=== PATIENT | male | born 1955 | race Caucasian/White ===

== ENCOUNTER 2021-03-19 09:59 | Inpatient (IN) | payer MEDICARE ==
[~2021-03-19] VITALS: Ht 175.3 cm; Wt 75.3 kg
[2021-03-19] MEDS ORDERED: CHLORDIAZEPOXID25 MG PO (10:16)
[2021-03-19] MEDS ORDERED: VITAMIN B-12500 MC3 SL (10:17)
--- OUTSIDE RECORDS SUMMARY | 2021-03-19 11:42 | XMS ---
PreManage Notification: AMBIKA BOOTH Security Audit Control Clerk Events No recent Security Events currently on file CRITERIA MET - [facility] - 2 Visits in 30 Days CARE PROVIDERS Mo Monge DO [facility] Current PHONE: Unknown Alyson has no Care Guidelines for this patient. E.Adali VISIT COUNT (12 MO.) [address] [place] [address] TOTAL 2 NOTE: Visits indicate total known visits. ED/UCC VISIT TRACKING (12 MO.) 03/19/2021 10:00 [facility] [place] TYPE: Emergency COMPLAINT: - GLF - WEAKNESS 03/12/2021 07:54 [facility] [place] TYPE: Emergency DIAGNOSES: - Other disorders of plasma-protein metabolism, not elsewhere classified - Unspecified fall, initial encounter - Hypocalcemia - FALL INPATIENT VISIT TRACKING (12 MO.) No inpatient visits to display in this time frame [id number]
--- NOTE | 2021-03-19 14:30 | NUR ---
PT. HAS +3 BLE EDEMA HE STATES IS CHRONIC FOR THE PAST YEAR. ABRASIONS SCATTERED BLE. MULTIPLE SKIN TEARS TO LEFT ARM. DRESSED WITH ALLEVYNS AND CLEANED WITH WOUND SPRAY. PT. IS ALERT AND ORIENTED. LUNGS DIM. IN BASES. HE STATES HIS LAST ETOH DRINK WAS LAST MONDAY AND HIS SISTER BROUGHT HIM TO HIS PCP WHO PRESCRIBED "LITTLE GREEN PILLS" FOR WITHDRAWAL. IV SITE WNL AND FLUSHES WELL. DISCUSSED SAFETY AND PT. BROUGHT URINAL AND CLEAR FLUIDS. PT. LEFT RESTING WITH BED ALARM ON AND CALL LIGHT IN REACH.
--- NOTE | 2021-03-19 14:43 | NUR ---
REPORT RECEIVED FROM EDUCATION MANAGERS AND PT. ARRIVED VIA STRETCHER. ASSISTED WITH TRANSFERRING TO BED. VITALS TAKEN. MARGIN TRIMMER IN THE ROOM.
--- NOTE | 2021-03-19 16:47 | NUR ---
MED REC COMPLETE
--- NOTE | 2021-03-19 19:31 | NUR ---
PATIENT RESTING QUIETLY IN SEMI-FOWLERS POSITION IN BED. PATIENT DENIES ANY CARE NEEDS AT THIS TIME AND IS SLEEPY. SHIFT REPORT RECEIVED FROM KETTY ANDREWS.
--- NOTE | 2021-03-19 20:44 | NUR ---
TURNED PATIENT'S BED BACK FROM WINDOW SO HE CAN WATCH TV. PM MEDS GIVEN. PATIENT'S ATTENDS ARE DRY AT THIS TIME AND PATIENT ADVANCED TO LOW SODIUM DIET. CALLED [employer] FOR A SANDWICH BOX AND PATIENT HAS EATEN 2 JELLO'S. PATIENT HAS NO OTHER REQUESTS AT THIS TIME AND HAS SOME MINOR TREMORS IN HIS HANDS. CALL LIGHT IS IN REACH.
--- NOTE | 2021-03-19 21:54 | NUR ---
ASSITED PT TO HOB, CHANGED BRIEF, PERICARE DONE. SET PT UP FOR LATE NIGHT SNACK. CALL LIGHT WITHIN REACH, NO FURTHER ASSISTANCE NEEDED AT THIS TIME.
--- NOTE | 2021-03-19 22:00 | NUR ---
THIS RN HELPED PUT YOON ON HIS SANDWICH AND SET THE HEAD OF HIS BED UP TO EAT. PATIENT ALSO GIVEN A GLAS OF MILK HE REQUESTED. CALL LIGHT IS IN REACH.
--- NOTE | 2021-03-19 23:11 | NUR ---
ANSWERED PT CALL LIGHT, LARGE INCONT. CHANGED BRIEF. CALL LIGHT WITHIN REACH BED ALARM ON. NO FURTHER ASSISTANCE NEEDED AT THIS TIME.
--- NOTE | 2021-03-20 00:21 | NUR ---
PATIENT RESTING QUIETLY ON HIS RIGHT SIDE, RESPIRATIONS ARE REGULAR AND EVEN, EYES ARE CLOSED, AND CALL LIGHT IS IN REACH. HR=83 ON TELE.
--- NOTE | 2021-03-20 02:11 | NUR ---
PATIENT UP TO THE COMMODE AND BACK TO BED 2PA AND FWW. PATIENT HAD A LARGE FORMED BM. PATIENT BACK IN BED WITH SCD'S ON AND NEW WARM BLANKETS IN PLACE. PATIENT COMFORTABLE IN HIS CURRENT POSITION. LIGHTS TURNED DOWN AND CALL LIGHT IS IN REACH. HR=89 ON TELE#10.
--- NOTE | 2021-03-20 02:56 | NUR ---
PT CALLED SAYING HE NEEDS TO URINATE. ASSISTED HIM TO SIT AT EDGE OF BED, HE SAID HE FELT DIZZY. TRIED USING THE URINAL AND WAS UNABLE TO GO. PT IS NOW BACK IN BED AND HAS WARM BLANKETS IN PLACE. BED ALARM IS ON, SCDS ON AND CALL LIGHT IS CLOSE.
--- NOTE | 2021-03-20 03:30 | NUR ---
PATIENT RESTING QUIETLY ON HIS LEFT SIDE, RESPIRATIONS ARE REGULAR AND EVEN, EYES ARE CLOSED, AND CALL LIGHT IS IN REACH.
--- NOTE | 2021-03-20 05:39 | NUR ---
THIS RN WENT IN TO BLADDER SCAN PATIENT ONLY TO FIND THAT HE HAD A HUGE INCONTINENCE OF URINE IN THE BED. PATIENT CLEANED UP BY NAVJOT NGUYEN AND THIS RN. CHUX CHANGED AND NEW ATTENDS IN PLACE. PATIENT PULLED UP IN THE BED AND REPOSITIONED, BARRIER CREAM APPLIED TO PATIENT'S BUTTOCKS. [facility]. PATIENT'S CALL LIGHT IS IN REACH AND HE HAS NO OTHER NEEDS AT THIS TIME.
--- NOTE | 2021-03-20 07:10 | NUR ---
Report received from Edison HDEZ. Pt resting in bed with no needs at this time, allowed to rest undisturbed. Call light in reach. Will continue plan of care
--- NOTE | 2021-03-20 07:26 | NUR ---
SHIFT CHANGE REPORT GIVEN TO KETTY PEREZ. PATIENT RESTING QUIETLY ON HIS RIGHT SIDE, RESPIRATIONS ARE REGULAR AND EVEN, AND CALL LIGHT IS IN REACH.
--- NOTE | 2021-03-20 08:50 | NUR ---
Scheduled medications administered, assessment complete. Pt resting in bed when this RN enters and awakens to voice. He states feeling like he has a "terrible hangover" and requests to sit up, this RN and INSULATION AND FLOORING ASSEMBLER assisted pt to chair with FWW, tolerates well, legs elevated. Linens changed and personal hygiene provided. Lung sounds clear, pt has frequent cough with sputum noted. He states this is a new symptom. Breakfast delivered, pt has no further needs at this time. Denies need to void. Call light in reach.
--- NOTE | 2021-03-20 09:54 | NUR ---
PATIENT UP IN CHAIR. PATIENT COMPLAINED OF SOME DISCOMFORT UNDER RIGHT HIP, PILLOW PLACED UNDER RIGHT HIP AND PATIENT IS MORE COMFORTABLE NOW. VITALS AND I&O'S CHARTED. CALL LIGHT IN REACH. NO FURTHER NEEDS AT THIS TIME.
--- NOTE | 2021-03-20 10:10 | NUR ---
Consent to blood administration signed
--- NOTE | 2021-03-20 11:01 | NUR ---
First unit PRBC's infusing. Pt educated on risks, benefits, possible side effects, verbalizes understanding and signs consent form. VSS, pt A+O, on room, air. Pt states feeling "better" at this time after working with physical therapy and eating breakfast. This RN remains at bedside.
--- NOTE | 2021-03-20 11:15 | NUR ---
Vitals taken, stable at this time. Pt resting in chair with eyes closed, respirations even and unlabored. He denies sx of transfusion reaction. Blood adminstration rate increased, this RN remains at bedside total of 35 minutes. Call light in reach, pt has no further needs. Will continue to monitor.
--- NOTE | 2021-03-20 12:58 | NUR ---
PATIENT IN CHAIR FOR LUNCH. PATIENT THEN TO BED, 1PA FWW. INCONT. OF URINE. MELANIE CARE DONE. NEW ATTENDS IN PLACE. WARM BLANKETS GIVEN. VITALS AND I&O'S CHARTED. CALL LIGHT IN REACH. NO FURTHER NEEDS AT THIS TIME.
--- NOTE | 2021-03-20 14:00 | NUR ---
1st unit PRBC complete, pt VSS, a+o, has no needs or signs of adverse reaction.
--- NOTE | 2021-03-20 14:37 | NUR ---
2nd unit PRBCs infusing WNL. VSS, pt resting in bed with eyes closed, breathing even and unlabored. Verified with 2nd RN.
--- NOTE | 2021-03-20 16:00 | NUR ---
PRBC transfusion complete, VSS, pt alert and oriented. assisted to use the urinal to void, no further needs at this time.
--- NOTE | 2021-03-20 16:30 | NUR ---
Assisted patient with urinal use, positioned with pillows in bed. No further needs.
--- NOTE | 2021-03-20 17:00 | NUR ---
Pt calls and states incontinent, brief changed and large amount of urine noted. Pt repositioned in bed and has no further needs, call light in reach.
--- NOTE | 2021-03-20 18:29 | NUR ---
PATIENT SITTING UP IN BED. VITALS AND I&O'S CHARTED. WARM BLANKET GIVEN. CALL LIGHT IN REACH. NO FURTHER NEEDS AT THIS TIME.
--- NOTE | 2021-03-20 19:42 | NUR ---
ASSISTED PT WITH BED LINEN CHANGE, NEW BRIEF, PERICARE DONE, SKIN PROTECTANT APPLIED, VS DONE. RN NOTIFIED OF PAIN FROM COUGHING.
--- NOTE | 2021-03-20 20:06 | NUR ---
ASSSITED RN TO CHANGE PT, LARGE INCONT, CHANGED BRIEF, PERICARE, BOOSTED PT TO HOB, PT FLOATING ON PILLOWS, SUPINE
--- NOTE | 2021-03-20 20:11 | NUR ---
PATIENT CALLED FOR URINARY INCONTINENCE. PATIENT'S ATTENDS CHANGED BY THIS RN AND NAVJOT NGUYEN. PATIENT FLOATED ON PILLOWS OFF HIS BACK AND BUTTOCKS. PATIENT REQUESTING COUGH MEDICATION. INFORMED AND COUGH MEDS ORDERED. PATIENT'S CALL LIGHT IS IN REACH. AWAITING COUGH MED ORDER TO CLEAR.
--- NOTE | 2021-03-20 20:36 | NUR ---
PATIENT GIVEN COUGH MEDICATION AND HIS OTHER EVENING MEDS. PATIENT ATTENDS WET AND PATIENT CLEANED UP BY THIS RN AND NAVJOT NGUYEN. NEW WARM BLANKETS GIVEN. PATIENT HAS NO OTHER NEEDS AT THIS TIME. CALL LIGHT IS IN REACH.
--- NOTE | 2021-03-20 22:36 | NUR ---
PATIENT RESTING QUIETLY IN BED WITH HEAD OF BED SLIGHTLY ELEVATED. HR=81 ON TELE#10. RESPIRATIONS ARE REGULAR AND EVEN AND HIS EYES ARE CLOSED. CALL LIGHT IS IN REACH.
--- NOTE | 2021-03-20 23:51 | NUR ---
PATIENT CALLED FOR WET ATTENDS. MELANIE-PAD CHANGED AND DRY ATTENDS IN PLACE. PATIENT HAD NO OTHER CARE NEEDS AT THIS TIME. CALL LIGHT IS IN REACH. PATIENT UNABLE TO VOID ANY FURTHER USING URINAL.
--- NOTE | 2021-03-21 00:20 | NUR ---
PATIENT CALLED AND IS NOT COMFORTABLE IN BED. PATIENT REPOSITIONED AND PULLED UP IN THE BED AND TURNED TO HIS LEFT SIDE. CALL LIGHT IN REACH AND NO FURTHER NEEDS AT THIS TIME.
--- NOTE | 2021-03-21 00:35 | NUR ---
PATIENT CALLED AND IS NOT COMFORTABLE. PATIENT REPOSITONED BY NAVJOT NGUYEN. PATIENT HAD A SMALL AMOUNT OF URINE ON PERIPAD AGAIN AND WAS CHANGED. PATIENT HAS NO OTHER NEEDS AT THIS TIME. CALL LIGHT IN REACH AND TELE BOX HAS BEEN DC'D.
--- NOTE | 2021-03-21 00:45 | NUR ---
PATIENT CALLED ASKING FOR A SLEEPING PILL. TALKED WITH PATIENT ABOUT THE LIBRIUM HE WAS ALREADY GIVEN AND THAT HE DOES NOT HAVE ANOTHER DOSE DUE UNTIL MORNING. OFFERED PATIENT SOME WARM MILK OR ANYTHING ELSE THAT HE THOUGHT MIGHT RELAX HIM AND HE DECLINED. TURNED PATIENT'S TV BACK ON FOR HIM AND HE WILL CALL IF HE NEEDS ANYTHING ELSE. CALL LIGHT MARYB[facility] CALLAWAY.
--- NOTE | 2021-03-21 02:00 | NUR ---
PT CALLED SAYING HE IS NOT COMFORTABLE. ASSISTED PT TO GET BOOSTED AND REPOSITIONED IN BED. PT WILL SEE IF THAT HELPS AND CALL IF NEEDED. CALL LIGHT IS CLOSE AND BED ALARM IS ON.
--- NOTE | 2021-03-21 02:45 | NUR ---
IN ROOM TO ASSIST TO TO BSC WITH PATRICK MORFIN. 2PA PIVOT TO BSC AND BACK TO BED. PT HAD SM BM. PT DENIES FURTHER NEEDS AT THIS TIME. CALL LIGHT IS CLOSE AND BED ALARM IS ON.
--- NOTE | 2021-03-21 03:35 | NUR ---
ASSISTED RN WITH TURNING PT, REPOSITIONED LEFT WITH PILLOW SUPPORT. CHANGED BRIEF, PROVIDED PERICARE.
--- NOTE | 2021-03-21 03:37 | NUR ---
PATIENT CALLED TO BE TURNED. PATIENT TURNED TO HIS LEFT SIDE BY NAVJOT NGUYEN AND THIS RN. PATIENT HAD NO OTHER NEEDS AT THIS TIME. CALL LIGHT IS IN REACH.
--- NOTE | 2021-03-21 05:27 | NUR ---
PATIENT UP TO THE BEDSIDE COMMODE 2PA AND FWW AND BACK TO BED AFRTER POSTURAL VS COMPLETE. PATIENT REPOSITIONED TO HIS LEFT SIDE. VS STABLE. PATIENT JUST HAD A SMALL SMEAR OF STOOL WHILE UP. BED ALARM ON, CALL LIGHT IN REACH, NO OTHER CARE NEEDS AT THIS TIME.
--- NOTE | 2021-03-21 07:05 | NUR ---
Report received from Edison HDEZ. Pt is resting in bed with no needs at this time. Will continue plan of care.
--- NOTE | 2021-03-21 07:45 | NUR ---
Scheduled medications administered, assessment complete. Pt up to chair with 2PA, FWW. Linens and gown changed. Bed bath complete with shampoo, oral care complete. Breakfast ordered. Pt states coughing is continued but denies need for PRN. Lungs clear with slight fine crackles in bases. 3+ Edema in BLE. Pt on room air, saline locked, no further needs at this time. Room tidied, call light in reach.
--- NOTE | 2021-03-21 09:22 | NUR ---
PATIENT TO CHAIR FOR BREAKFAST, 1PA FWW. BED BATH GIVEN. MELANIE CARE SKIN CARE, ORAL CARE, SHAMPOO DONE. NEW GOWN PROVIDED. WARM BLANKETS GIVEN. VITALS AND I&O'S CHARTED. CALL LIGHT IN REACH. CHAIR ALARM ON. NO FURTHER NEEDS AT THIS TIME.
--- NOTE | 2021-03-21 12:30 | NUR ---
Pt calls and requests PRN cough medication, administered. Pt has no further needs at this time, lunch tray cleared. Call light in reach.
--- NOTE | 2021-03-21 14:00 | NUR ---
PATIENT IN BED RESTING AT THIS TIME. WATER AT BEDSIDE. CALL LIGHT IN REACH. NO FURTHER NEEDS AT THIS TIME.
--- NOTE | 2021-03-21 14:30 | NUR ---
Assessment complete, remains unchanged. Pt has intermittent confusion and does not remember staff. Saline locked. on room air. No further needs, call light in reach.
--- NOTE | 2021-03-21 17:50 | NUR ---
Pt calls for items through day, straws, blankets, snacks, etc. Demonstrates intermittent confusion. In view of nurses station, curtain left open. Will continue plan of care.
--- NOTE | 2021-03-21 18:38 | NUR ---
PATIENT IN CHAIR FOR DINNER. VITALS AND I&O'S CHARTED. PATIENT HAD SME[employer] INC. BM IN ATTENDS. ATTENDS CHANGED, MELANIE CARE DONE. PATIENT TO BED FROM CHAIR, 1PA FWW. CALL LIGHT IN REACH. BED ALARM ON. NO FURTHER NEEDS AT THIS TIME.
--- NOTE | 2021-03-21 19:29 | NUR ---
PATIENT RESTING QUIETLY ON HIS RIGHT SIDE, RESPIRATIONS ARE REGULAR AND EVEN, EYES ARE CLOSED, AND CALL LIGHT IS IN REACH. NO CURRENT CARE NEEDS NOTED. SHIFT REPORT RECEIVED FROM KETTY PEREZ.
--- NOTE | 2021-03-21 22:20 | NUR ---
PATIENT CALLED TO BE CHANGED DUE TO INCONTINENCE OF URINE. PATIENT SAYS HE HAD BEEN SLEEPING WELL, BUT WOKE UP WET. LARGE INCONTINENCE CLEANED UP AND NEW ATTENDS AND CHUX ARE IN PLACE 1PA BY THIS RN. PATIENT ABLE TO SCOOT HIMSELF BACK UP TO THE TOP OF THE BED, HE IS MUCH STRONGER THAN LAST NIGHT. IV'S FLUSHED WNL AND VS ARE STABLE. PATIENT GIVEN TESSALON SHELBY FOR COUGH ALONG WITH OTHER PM SCHEDULED MEDS. BE BACK IN LOW POSITION, BED ALARM ON, AND CALL LIGHT IN REACH. ICE WATER REFILLED. PATIENT HAS NO OTHER NEEDS AT THIS TIME.
--- NOTE | 2021-03-22 00:27 | NUR ---
PT CALLED, WANTED TO GET UP TO BSC. MODERATE AMOUNT ASSISTANCE WITH 2 STAFF TO BSC. THOUGHT HE WOULD HAVE A BM, HOWEVER, HE SAID FALSE ALARM. BACK TO BED, DEPENDENT ON GETTING LEGS INTO BED, AND REPOSITIONING. WARM BLANKET PROVIDED, BED ALARM ON, CALL LIGHT WITHIN REACH.
--- NOTE | 2021-03-22 02:31 | NUR ---
PATIENT HAS TURNED HIMSELF TO HIS RIGHT SIDE, RESPIRATIONS ARE REGULAR AND EVEN, EYES ARE CLOSED, AND CALL LIGHT IS IN REACH. PATIENT HAS NO CURRENT CARE NEEDS.
--- NOTE | 2021-03-22 03:46 | NUR ---
PATIENT CALLED TO TELL STAFF HE HAD BEEN INCONTINENT. THIS RN 1PA HELPED PATIENT GET WASHED UP, NEW ATTENDS IN PLACE, PATIENT PUSHED HIMSELF UP IN BED, AND PATIENT REPOSITIONED TO HIS LEFT SIDE. PATIENT HAD NO OTHER NEEDS AT THIS TIME. BD IN THE LOWEST POSITION AND CALL LIGHT IS IN REACH.
--- NOTE | 2021-03-22 04:37 | NUR ---
PATIENT HAS REPOSITIONED HIMSELF TO HIS LEFT SIDE AND HIS RESPIRATIONS ARE REGULAR AND EVEN, WITH EYES CLOSED. PATIENT HAS NO CURRENT CARE NEEDS AND CALL LIGHT IS IN REACH.
--- NOTE | 2021-03-22 06:05 | NUR ---
PATIENT CALLED TO GET AN SNACK AND WAS GIVEN VANILLA PUDDING. PATIENT AM ASSESSMENT IS COMPLETE AND VS ARE STABLE. PATIENT'S ATTENDS ARE DRY AT THIS TIME AND HE HAS NO OTHER CARE NEEDS. PATIENT SET UP IN BED TO EAT HIS PUDDING AND CALL LIGHT IS IN REACH.
--- NOTE | 2021-03-22 07:59 | NUR ---
PT SITTING IN CHAIR. PT IN A LIVELY MOOD. UPDATED WHITE BOARD AND CHANGED BED LINENS. PT NOW EATING BREAKFAST. CALL LIGHT WITHIN REACH. CHAIR ALARM IS ON. NO FURTHER NEEDS AT THIS TIME.
--- NOTE | 2021-03-22 08:47 | NUR ---
tESSALON PEARLE 100MG PO ADMIN FORE REPORTS OF COUGH.
--- NOTE | 2021-03-22 10:59 | NUR ---
PATIENT IN CHAIR RESTING WITH EYES CLOSED. VITALS AND I&O'S CHARTED. CALL LIGHT IN REACH. FRESH WATER GIVEN. NO FURTHER NEEDS AT THIS TIME.
--- NOTE | 2021-03-22 11:03 | NUR ---
Patient in good spirits this morning, alert and oriented x3. Patient up in chair at this time. No pain reported. Patient reports he is feeling a bit better today. No needs. Educated patient on magnesium started today, pt reports his understanding. Patient has no needs. Personal supplies and call light within reach.
--- NOTE | 2021-03-22 14:30 | NUR ---
PATIENT HAD INCONT. VOID. PATIENT STOOD FROM CHAIR TO DO MELANIE CARE. NEW ATTENDS IN PLACE. PILLOW PLACED UNDER RIGHT HIP. CALL LIGHT IN REACH. CHAIR ALARM ON. NO FURTHER NEEDS AT THIS TIME.
--- NOTE | 2021-03-22 16:35 | NUR ---
Patient sitting up in chair watching tv. Patient denies pain at this time. Legs elevated, no distress. Patient has no needs. Personal supplies and call light within reach.
--- NOTE | 2021-03-22 19:30 | NUR ---
PATIENT REPORT RECEIVED FROM KETTY DREW. PATIENT RESTING QUIETLY ON HIS RIGHT SIDE, EYES CLOSED, RESPIRATIONS ARE REGULAR AND EVEN, AND CALL LIGHT IS IN REACH.
--- NOTE | 2021-03-22 19:38 | NUR ---
PATIENT CALLED TO GO TO BATHROOM. PATIENT TO BATHROOM, 1PA FWW. MELANIE CARE DONE. PATIENT BACK TO BED, 1PA FWW. WARM BLANKETS GIVEN. BED ALARM ON. CALL LIGHT IN REACH. NO FURTHER NEEDS AT THIS TIME.
--- NOTE | 2021-03-22 21:30 | NUR ---
PATIENT CALLED AND HAS HAD A LARGE INCONTINENCE. TRIED TO TALK WITH PATIENT ABOUT CALLING BEFORE HE IS INCONTINENT,BUT HE SAYS HE WAS ASLEEP AND IT WOKE HIM UP. PATIENT CHANGED AND CLEANED UP, NEW ATTENDS AND CHUX IN PLACE, AND PATIENT POSITIONED TO HIS LEFT SIDE. PATIENT TOOK PM MEDS WITHOUT DIFFICULTY. PATIENT'S ICE WATER REFILLED AND ASSESSMENT COMPLETE. BED ALARM ON AND CALL LIGHT IS IN REACH.
--- NOTE | 2021-03-22 23:12 | NUR ---
PATIENT CONTINUES TO REST QUIETLY ON HIS LEFT SIDE, RESPIRATIONS ARE REGULAR AND EVEN, EYES ARE CLOSED, AND CALL LIGHT IS IN REACH.
--- NOTE | 2021-03-23 00:35 | NUR ---
PATIENT CALLED TO HAVE THIS RN ADJUST HIS BLANKETS AROUND HIS FEET. PATIENT HAD NO OTHER NEEDS AT THIS TIME. CALL LIGHT IS IN REACH.
--- NOTE | 2021-03-23 02:28 | NUR ---
Juanita care was done with patient. Patient is incontinent. Patient utilized 1PA to roll and be repositioned onto his side.
--- NOTE | 2021-03-23 04:43 | NUR ---
PATIENTS ATTEND CHANGED AND MELANIE CARE COMPLETED. PATIENT TOLERATED ACITIVTY WELL. VITALS TAKEN AND RECORDED. INTAKE AND OUPUT RECORDED. PATIENT DENIES ANY NEEDS. IV IS SL AND FLUSHES WELL X2. CALL LIGHT AND BELONGINGS ARE WITHIN REACH. BED ALARM ON FOR SAFETY.
--- NOTE | 2021-03-23 07:40 | NUR ---
PT AWAKE IN ROOM. PT UP WITH TWO PERSON ASSIST AND FWW. PT LEANING HEAVILY TO THE RIGHT SIDE. PT NOW UP IN THE CHAIR, BRIEF CHANGED, CALL LIGHT IN REACH. FRESH ICE WATER GIVEN. WARM CLOTH GIVEN FOR FACE AND HANDS. WHITE BOARD UPDATED. STUDENT KETTY YEUNG IN ROOM.
--- NOTE | 2021-03-23 07:47 | NUR ---
Patient up in chair, alert and oriented x3. Patient denies pain at this time. Patient denies needs. No notable distress. Personal supplies and call light within reach.
--- NOTE | 2021-03-23 09:30 | NUR ---
Patient sitting up in chair watching out the window, alert/oriented, no distress noted. Patient reports he is feeling better this morning. Patient denies needs. Personal supplies and call light within reach.
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
--- NOTE | 2021-03-23 10:54 | NUR ---
CALLED [facility] A[facility]D CRISIS LINE [phone]. ROME WILL COME SEE PATIENT LATER TODAY.
--- NOTE | 2021-03-23 11:29 | NUR ---
Patient up working with physical therapy.
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
--- NOTE | 2021-03-23 13:01 | NUR ---
Assisted patient back to bed from chair and removed breakfast tray. Warm blankets provided. Call light in reach.
[2021-03-23] MEDS ORDERED: SPIRONOLACTONE25 MG PO (13:20)
[2021-03-23] MEDS ORDERED: FOLIC ACID1 MG PO (13:21)
[2021-03-23] MEDS ORDERED: VITAMIN B-1100 MG PO (13:21)
--- NOTE | 2021-03-23 13:55 | NUR ---
RECEIVED CALL FROM [facility] THAT THEY CAN ACCEPT THIS PATIENT FOR REHAB. UPDATED STAFF AND PATIENT.
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
--- NOTE | 2021-03-23 14:30 | NUR ---
CALLED [facility] AND SPOKE WITH EMELIA IN [place]. DISCUSSED PATIENT MAY NEED ASSESSMENT FOR POSSIBLE MEDICAID HELP FOR EXTENDED SNF STAY, HOME CARE AND MAYBE ASST LIVING AT SOME POINT. SHE TOOK INFORMATION AND WILL CONTACT PATIENT DIRECTLY IN A DAY OR TWO AT [facility]. PATIENT UPDATED.
--- NOTE | 2021-03-23 15:02 | NUR ---
Patient visiting with [facility] represenative.
--- NOTE | 2021-03-23 15:13 | NUR ---
ROME FROM [facility] A&D DONE WITH SEEING PATIENT. STATES THEY ARE GOING TO BE WORKING WITH PATIENT AND WILL CONNECT WITH HIM WHILE IN [facility]. STATES HE IS VERY CONCERNED ABOUT GOING HOME ALONE. WE DISCUSSED THAT HE HAS LITTLE SUPPORT AND MAY NEED HOME CARE OR ASSISTED LIVING AT SOME POINT. DISCUSSED THAT I HAVE CALLED [facility] AND THEY WILL WORK ON THAT WITH HIM. PATIENT ASKED WE GIVE HER HIS CONTACT INFORMATION.
--- NOTE | 2021-03-23 17:09 | NUR ---
Patient watching tv in bed, alert and oriented. Patient in good spirits this evening. Patient reports his cough has improved. No needs at this time. Personal supplies and call light within reach.
--- NOTE | 2021-03-23 18:39 | NUR ---
PATIENT SITTING UP IN BED WITH BED FACING TOWARDS THE WINDOW. VITALS AND I&O'S CHARTED. CALL LIGHT IN REACH. NO FURTHER NEEDS AT THIS TIME.
--- NOTE | 2021-03-23 19:40 | NUR ---
IN ROOM FOR REPORT, PT IS RESTING WITH EYES CLOSED. CALL LIGHT IS CLOSE.
--- NOTE | 2021-03-23 21:38 | NUR ---
PATIENT CALLED TO BE REPOSITIONED ONTO LEFT SIDE. VITALS AND I&O'S CHARTED. PILLOW PLACED UNDER RIGHT HIP. CALL LIGHT IN REACH. NOF URTHER NEEDS AT THIS TIME.
--- NOTE | 2021-03-23 22:02 | NUR ---
PATIENT TURNED FROM LEFT SIDE LYING TO RIGHT SIDE, WARM BLANKET GIVEN
--- NOTE | 2021-03-23 22:31 | NUR ---
IN ROOM TO ASSESS PT AND ADMINISTER MEDICATIONS. PT REPORTS A COUGH, IS SOUNDS MOIST. ADMINISTERED TESSLAN PERRLS. PT DENIES PAIN AND DENIES NEEDS. ASSISTED PT TO REPOSITION TO R SIDE. PT DENIES FURTHER NEEDS. CALL LIGHT IS CLOSE AND BED ALARM IS ON.
--- NOTE | 2021-03-23 23:27 | NUR ---
PT'S IV IN R AC WAS RED AND WARM. IT FLUSHES FINE AND PT DENIES PAIN. DC'D THE IV BECAUSE IT DOES LOOK RED. CATH TIP IN TACT AND PT TOLERATED WELL, GAUZE AND COBAN APPLIED.
--- NOTE | 2021-03-24 02:04 | NUR ---
PT IS RESTING WITH EYES CLOSED, RR IS EVEN AND NONLABORED. CALL LIGHT IS CLOSE AND BED ALARM IS ON.
--- NOTE | 2021-03-24 03:19 | NUR ---
PT CALLED STATING HE IS WET, CHANGED ATTENDS. PROVIDED WARM BLANKET AND REPOSITIONED PT TO HIS R SIDE WITH HELP OF ANTONIETA HDEZ. PT DENIES FURTHER NEEDS AT THIS TIME CALL LIGHT IS CLOSE.
--- NOTE | 2021-03-24 05:45 | NUR ---
IN ROOM WITH LENIN RN TO GET PT UP TO BSC. DAILY WEIGHT OBTAINED AND VS TAKEN. PT DENIES FURTHER NEEDS AT THIS TIME. CALL LIGHT IS CLOSE.
--- NOTE | 2021-03-24 05:53 | NUR ---
pt was swabbed for covid 19
--- NOTE | 2021-03-24 08:39 | NUR ---
Patient via chair FWW, 2PA. Patient leans weight far to the right side and needs encouragment to stand up straighter. Patient was encouraged to stand up straight and keep the walker closer to his body and not pushing it out too far. Patient is unsteady. Patient was active in am care by participating in cleaning his hands and face with a warm wash cloth.
--- NOTE | 2021-03-24 09:50 | NUR ---
THIS RN IN PTS ROOM TO GIVE PT HIS MRDANNA MEDS. PT NOT COUGHING WHEN THIS RN ENTERED ROOM BUT SOON AFTER DISCUSSING WITH PT ABOUT HIM GOING TO [facility] THIS AM PT STARTED FORCFULLY NONPRODUCTIVELY COUGHING. PT ABLE TO TAKE SIPS OF WATER AND SWALLOW MEDS WELL WHILE SITTING FULLY UP IN CHAIR.
--- NOTE | 2021-03-24 10:16 | NUR ---
PT WORKING WITH PHYSICAL THERAPY AT THIS TIME.
--- NOTE | 2021-03-24 10:51 | NUR ---
THIS RN CALLED REPORT TO MAXI. CHELE HDEZ GIVEN REPORT. ALL QUESTIONS ANSWERED TO THE BEST OF THIS RNS ABILITY
--- NOTE | 2021-03-24 12:34 | NUR ---
IN TO VISIT PT. JUST WE STARTED, PT RECEIVED A PHONE CALL AND SEEMED INTENT ON CONTINUING HIS CALL. CAME BACK A FEW MOMENTS LATER AND BLANKACY CAME EARLY TO DC PT.
== END 2021-03-24 11:25 | disposition home or self-care (01) | DRG 92 ==
LOC: ED 09:59 → MS 10:01
PROVIDERS: ADMIT Internal Medicine; ATTEND Internal Medicine
DX: G72.1 Alcoholic myopathy (principal); F10.288 Alcohol dependence with other alcohol-induced disorder; K70.31 Alcoholic cirrhosis of liver with ascites; E83.42 Hypomagnesemia; D50.9 Iron deficiency anemia, unspecified; E78.5 Hyperlipidemia, unspecified; Z20.822 Contact with and (suspected) exposure to COVID-19; I10 Essential (primary) hypertension; N40.0 Benign prostatic hyperplasia without lower urinary tract symptoms; K21.9 Gastro-esophageal reflux disease without esophagitis; D73.1 Hypersplenism; Z88.6 Allergy status to analgesic agent; Z88.5 Allergy status to narcotic agent
CPT/HCPCS: 36430; 70450; 71045; 73502; 76700; 80048; 80053; 82140; 83735; 85025; 85610; 86850; 86900; 86901; 86922; 96374; 96375; 96376; 97110; 97116; 97162; 97167; 97530; 99285-25; C9113; C9803; G0378; J1940; J3411; J3475; J3480; J7030; J7060; P9016; U0003

== ENCOUNTER 2022-10-20 14:40 | Inpatient (IN) | payer MEDICARE ==
[~2022-10-20] VITALS: Ht 175.3 cm; Wt 87.0 kg
[~2022-10-20 14:40] MED LIST: CHLORDIAZEPOXID25 MG PO; FOLIC ACID1 MG PO; SPIRONOLACTONE25 MG PO; VITAMIN B-1100 MG PO; VITAMIN B-12500 MC3 SL
[2022-10-20] MEDS ORDERED: OMEPRAZOLE20 MG PO (14:52)
[2022-10-20] MEDS ORDERED: LISINOPRIL-HCT1 EAC2 PO (14:53)
[2022-10-20 21:30] VITALS: BP 132/82
--- NOTE | 2022-10-20 21:33 | EKG ---
[facility] [address] [place] [address] Signed Normal sinus rhythm Nonspecific T wave abnormality Prolonged QT Abnormal ECG No previous ECGs available Confirmed by Ralf Lloyd MD () on 10/20/2022 9:32:45 PM Electronically Signed By: RALF LLOYD MD 10/20/222132 PATIENT NAME: AMBIKA BOOTH Electrocardiogram DATE OF : 55 PHYSICIAN: RALF LLOYD MD REPORT #: [id number] REPORT IS CONFIDENTIAL AND NOT TO BE RELEASED WITHOUT AUTHORIZATION
--- NOTE | 2022-10-20 22:21 | NUR ---
2114; PT ARRIVED TO UNIT, ABLE TO AMBULATE USING FWW, PT HAVING DIARRHEA FOR 2+ DAYS. 2144: SPOKE WITH MD, EXPRESSED PT NOT HAVING PAIN CONTROL, ADDITIONAL ORDERS PUT IN, PT TOLERATED WELL. 2219: CRITICAL RESULT FOR Ca+ AND MAG, MD ALREADY AWARE AND WILL PUT ADDITIONAL ORDERS IN
[2022-10-21] VITALS (9 sets, daily range): BP systolic 100–165; BP diastolic 69–87
--- NOTE | 2022-10-21 04:28 | NUR ---
PT STATES PAIN IS 50% BETTER, REPOSITIONS SELF, CONTINUE TO REPLACE ELECTROLYTES
--- NOTE | 2022-10-21 06:01 | NUR ---
PT C/O OF EXCRUCIATING PAIN IN HIS SHOULDER BLADES. ABLE TO SIT @ EDGE OF BED, BUT CRYING OUT. PT ABLE TO STAND AND REPOSITION. PT STATES HE HAS HAD THIS FRO SOME TIME AND BELIEVS IT IS ARTHRIC. htn NOTED
--- NOTE | 2022-10-21 06:06 | NUR ---
It was a pleasure to visit with Mr. Talamantes this morning, though he is complaining of neck pain. RN is aware and will medicate after we finish this assessment. Mr. Talamantes shares that he lives at [facility], and Dr. Monge is his PCP in [place]. This is also the same information that is in his patient demographics on admission. Mr. Talamantes would like to return to [facility], stating that he is "very independant" He states that he still drives and drove last two days ago. He also states that he does his own laundry and shopping. He does have a sister that lives in [place] and can pick him up from the hospital. Mr. Talamantes's PCP is Dr. Monge in [place] as his PCP currently, however, he states that he has not been to see Dr. Monge in over a year as it is too far to drive to [place]. He would like to get a PCP in [place] so that he can go to Dr. harmon. Mr. Talamantes also sees Dr. Orellana (Nephrology) at [facility], but again has not followed up with him in over a year. He does state that Dr. Monge is still filling his prescriptions at this time. Mr Talamantes relates that he used to drink "Alot" but now only drinks Vodka 2 -3 times a week and occassionally has a beer. He also uses THC a couple of times a week "to get the edge off in case something bad happened that day." He last used THC 2 days ago, and ETOH yesterday. He is awake, alert, oriented to person, place, and time. He does answers questions appropriately and is very pleasant to visit with. He is setting on the edge of the bed and he is using a walker while here in the hospital. He has a sister in town who can transport him home on discharge.
--- NOTE | 2022-10-21 07:30 | NUR ---
REPORT RECEIVED FROM TRACE HDEZ. PT SITTING UP IN BED, BREAKFAST BROUGHT IN TO PT WHO AWAKENS EASILY. PT HAS SOME NECK PAIN WITH MOVEMENT, BUT DOES SIT HIMSELF UP MORE TO EAT HIS BREAKFAST, NO REQUESTS AT THIS TIME.
--- NOTE | 2022-10-21 09:09 | NUR ---
DR LLOYD IN TO SEE PT.
--- NOTE | 2022-10-21 11:30 | NUR ---
PT UP TO AMBULATE IN [place] USING FWW.
--- NOTE | 2022-10-21 12:15 | NUR ---
PT DONE WITH LUNCH, NOW BACK TO SIT IN BED. NO C/O AT THIS TIME OTHER THAN CONTINUED NECK PAIN. STATES "I THINK THAT MORPHINE WORKED BETTER" REFERRING TO THE KETORALAC.
--- NOTE | 2022-10-21 14:29 | NUR ---
MED REC COMPLETE
--- NOTE | 2022-10-21 15:00 | NUR ---
INTO SPEAK WITH PATIENT ABOUT ESTABLISHING A NEW PCP PER HIS REQUESTS. LIST OF PCP OPTIONS GIVEN TO PATIENT. AFTER DUCUSSING THE PHYSICAL LOCATIONS OF THE LOCAL PCP OFFICE, PATIENT CHOOSE [facility] WITHIN WALKING DISTANCE OF HIS HOME. WILL CONTACT [facility] TO ESTABLISH PCP.
--- NOTE | 2022-10-21 15:52 | NUR ---
RECIEVED HANDOFF REPORT FROM MICHAEL RN, PT WALKED TO MS, RM 114 W/O DIFFICULTY. PT ORIENTED TO CALL LIGHT, IN REACH. DENIES PAIN AT THIS TIME.
--- NOTE | 2022-10-21 16:37 | NUR ---
PT SITTING IN RECLINER, COMPLAINS OF NECK PAIN 01/26, PRN PAIN MEDICATION ADMINISTERED (PER EMAR). CALCIUM ADMINISTERING AT THIS TIME. DENIES FURTHER NEEDS. CALL LIGHT IN REACH.
--- NOTE | 2022-10-21 16:47 | NUR ---
ASSESSMENT COMPLETE. PT AWAKE IN RECLINER. NECK PAIN 01/26, PRN MEDICATION ADMINISTERED (PER EMAR). A&O, TELE #[address], BILAT LOWER EXT EDEMA 3+ IN FEET, 2+ IN CALVES. EDUCATED PT ON IMPORTANCE OF ELEVATING LEGS. CALL LIGHT IN REACH. DENIES FURTHER NEEDS.
--- NOTE | 2022-10-21 19:15 | NUR ---
shift report received from dayshift rn cj at bedside. pt awake and resting in chair, preparing to get up to ambulate in hallway with fww. +3 edema noted to ble, pt educated on elevating ble when resting in bed and chair as tolerated, pt states, "yeah they were up, i just put them down because i'm going on a walk". pt denies needs or concerns, tele #[address], nsr-hr wnl.
--- NOTE | 2022-10-21 21:38 | NUR ---
ASSESSMENT COMPLETE, PRN MELATONIN GIVEN-SEE EMAR ALONG WITH PRN PAIN MEDICATION FOR REPORTED 7/10 PAIN IN LEFT GROIN, HX OF HERNIA REPAIR TO BOTH LEFT AND RIGHT GROIN AREA, NO PROTUSION OR DEFORMITY NOTED. pt ALSO REPORTED HAVING SOME BLEEDING AFTER WIPING SELF, HX HEMORRHOIDS. BLEEDING WITNESSED BY CRAP GAME BOX PERSON WHO REPORTS IT BEING LIKE A "SKID MEEK". DR LLOYD MADE AWARE OF pt's CONCERNS, NO NEW ORDERS RECEIVED. CONTINUE WITH PAIN MANAGEMENT. DISCUSSED DAYSHIFTS CONCERNS OF USING TORADOL R/T pt'S HX OF KIDNEY DISEASE. PER MD, OKAY TO USE PRN MORPHINE FOR PAIN CONTROL AND WAIT ON TORADOL USE, CAN LEAVE TORADOL ON EMAR. MD TO ASSESS FURTHER IN THE MORNING, READ BACK TO CONFIRM. pt UPDATED AND RELIEVED, NO ADDITIONAL NEEDS OR CONCERNS. BLE REMAINS ELEVATED, WEAK PEDAL PULSES NOTED. CALL LIGHT IN REACH. MD REPORTS HE IS AWARE OF +3 EDEMA TO BLE.
--- NOTE | 2022-10-21 22:46 | NUR ---
SCHEDULED IV CALCIUM GLUCONATE INFUSING DIRECTED, IV SITE WNL. VERFIED MED AND ADMINISTRATION DETAILS WITH BILL FROM TELEPHARMACY. pt REPORTS PAIN IS MUCH IMPROVED. DENIES ADDITIONAL NEEDS OR CONCERNS. CALL LIGHT IN REACH.
--- NOTE | 2022-10-22 00:41 | NUR ---
ROUNDED ON pt, pt RESTING QUIETLY IN BED WITH EYES CLOSED, ON RA. RR EVEN AND UNLABORED. NO DISTRESS NOTED, CALL LIGHT IN REACH, BLE REMAINS ELEVATED WHILE IN BED.
--- NOTE | 2022-10-22 02:07 | NUR ---
ROUNDED ON pt, pt RESTING IN BED ON RIGHT SIDE. FACE COVERED WITH BLANKET. ON RA, RR EVEN AND UNLABORED. NO DISTRESS NOTED. TELE #7 SHOWS SINUS HIMANSHU-HR 50'S. CALL LIGHT REMAINS IN REACH, WILL MONITOR FOR CHANGES.
--- NOTE | 2022-10-22 04:00 | NUR ---
ROUNDED ON pt, pt RESTING IN BED ON HIS BACK. ON RA, RR EVEN AND UNLABORED. HR 59 PER TELE MONITOR. CALL LIGHT IN REACH.
[2022-10-22 04:49] VITALS: BP 140/91
--- NOTE | 2022-10-22 04:54 | NUR ---
MORNING ASSESSMENT COMPLETE, SLIGHT IMPROVEMENT TO BLE EDEMA COMPARED TO START OF SHIFT. pt TOLERATED ELEVATION TO BLE WELL. pt REPORTS WEARING LEG BRACES A CHILD. pt UP SBA TO VOID AND BACK IN BED, VSS. pt STATES, "I FEEL PRETTY DAMN GOOD. I HAVEN'T FELT THIS GOOD IN A LONG TIME". NO ADDITIONAL NEEDS OR CONCERNS, CALL LIGHT IN REACH.
--- NOTE | 2022-10-22 06:39 | NUR ---
pt DUE FOR NEW IV-OLD IV SITE EMS START. X2 ATTEMPTS UNSUCESSFUL BY FIBER WORKER, CROP GRAIN OR LIVESTOCK FARMER NILES PLACED 20G TO LEFT AC, IV SITE WNL. PRN PAIN MEDICAITON PROVIDED FOR REPORTED 6/10 NECK PAIN. OLD IV SITE TO RIGHT AC DC'D, DC WNL. CATHETER TIP INTACT. NO ADDITIONAL NEEDS, CALL LIGHT IN REACH.
[2022-10-22 09:15] VITALS: BP 169/97
--- NOTE | 2022-10-22 09:45 | NUR ---
PT RESTING WITH EYES CLOSED, CPAP ATTACHED AND RUNNING. PT AWAKENED EASILY, CPAP REMOVED FOR MED ADMINISTRATION. PO MEDS ADMINISTERED WITH SIPS OF WATER, AND IN PUDDING. SKIN APPEARS INTACT. PT ABLE TO STATE HER FIRST NAME ONLY, REFUSES TO ANSWER ALL OTHER QUESTIONS APPROPRIATELY OR IS CONFUSED. ANSWERS YES OR NO TO OTHER QUESTIONS (WOULD YOU LIKE PUDDING? APPLESAUCE? WOULD YOU LIKE TO WATCH TELEVISION? THIS CHANNEL? ETC.). CALL LIGHT ON LAP, BEDSIDE TABLE NEXT TO BED. SUCTION WITH YANKAUER SET UP FOR FUTURE USE IF NEEDED PRECAUTION. VS DONE. CPAP PLACED BACK ON PT, ROOM AIR SATS 90-92%. PT APPEARED TO REST WITH EYES CLOSED WE LEFT THE ROOM.
--- NOTE | 2022-10-22 11:12 | NUR ---
Patient awake, alert and oriented x4. Patient has no distress at this time. Pt denies pain. IV site patent, SL. Patient updated with plan of care. Call light within reach of patient.
--- NOTE | 2022-10-22 14:06 | NUR ---
Patient sitting up in chair, no distress. Patient reports he is painful in right shoulder. Legs elevated at this time. Patient frequently conversing with staff, anxious at times-able to calm with talking at this time. Water and warm blanket provided. Call light within reach.
[2022-10-22 15:14] VITALS: BP 135/76
--- NOTE | 2022-10-22 15:32 | NUR ---
Admin Morhine 2MG IV for reports of 7/10 back pain.
[2022-10-22 17:30] VITALS: BP 140/81
--- NOTE | 2022-10-22 19:15 | NUR ---
REPORT RECEIVED FROM KETTY MCCALL. PT SITTING UP IN CHAIR EATING STRAWBERRIES AND PUDDING. PT DENIES ANY NEEDS AT THIS TIME. CALL LIGHT IN REACH.
[2022-10-22 19:48] VITALS: BP 126/72
--- NOTE | 2022-10-22 20:03 | NUR ---
IN TO ROUND ON PT. PT SITTING UP IN CHAIR AND RESPONDS WHEN ADDRESSED. PT REPORTING PAIN 7/10 IN NECK AND REQUESTING PRN PAIN MEDICATIONS. VITALS AND I&Os COMPLETE. PRN PAIN MEDICATION ADMINISTERED, SEE MAR. ASSESSMENT COMPLETE. LUNG SOUNDS CLEAR. BOWEL TONES ACTIVE. EDEMA NOTED TO BLE. TELE IN PLACE. PT SITTING UP IN RECLINER WITH BLE ELEVATED IN RECLINER. PT DENEIS HOT PACK OFFER AND BLANKET OFFER. PT DENIES ANY OTHER NEEDS AT THIS TIME. CALL LIGHT IN REACH.
--- NOTE | 2022-10-22 21:36 | NUR ---
IN TO ROUND ON PT. PT SITTING UP IN RECLINER WITH BLE ELEVATED. PTs EYES CLOSED. RR EVEN AND UNLABORED. PT AWAKENS WHEN ADDRESSED. OFFERED PT PRN MELATONIN. PT ACCEPTS. PRN MELATONIN ADMINISTERED, SEE MAR. PT TAKES PO MEDICATION WITH NO ISSUES. ASKED PT IF PT WOULD LIKE TO SLEEP IN BED. PT ACCEPTS. PT AMBULATES FROM CHAIR TO WINDOW AND CLOSES BLINDS. PT AMBULATES TO RESTROOM. VOID NOTED. PT AMBULATES TO BED. PT HAS STEADY SLOW GAIT. PT IN BED. BLE ELEVATED ON PILLOW. PT DENIES ANY OTHER NEEDS AT THIS TIME. CALL LIGHT IN REACH.
--- NOTE | 2022-10-22 22:37 | NUR ---
IN TO ROUND ON PT. PT LAYING IN BED SEMI-FOWLERS. EYES CLOSED RR EVEN AND UNLABORED. PT AWAKENS WHEN DOOR OPENS. PT DENIES ANY NEEDS AT THIS TIME. CALL LIGHT IN REACH.
--- NOTE | 2022-10-23 01:08 | NUR ---
IN TO ROUND ON PT. PT LAYING ON RIGHT SIDE. PT ADDRESSES THIS RN WHEN DOOR OPENS AND STATES "I AM GOOD, I JUST GOT UP TO USE THE RESTROOM." PT DENIES ANY OTHER NEEDS AT THIS TIME. CALL LIGHT IN REACH.
--- NOTE | 2022-10-23 02:11 | NUR ---
PT AWAKENS WHEN DOOR OPENS. PT DENIES ANY NEEDS AT THIS TIME. CALL LIGHT IN REACH.
--- NOTE | 2022-10-23 03:11 | NUR ---
IN TO ANSWER CALL LIGHT. PT REQUESTING PRN PAIN MEDICATION. PT REPORTING PAIN 8/10 IN NECK. PRN PAIN MEDICATION ADMINISTERED, SEE MAR. ASSESSMENT COMPLETE. LUNG SOUNDS CLEAR. BOWEL TONES ACTIVE. EDEMA NOTED TO BLE. HOT PACK PROVIDED. WATER PROVIDED. PT SITTING UP IN CHAIR. PT DENIES ANY OTHER NEEDS AT THIS TIME. CALL LIGHT IN REACH.
--- NOTE | 2022-10-23 04:49 | NUR ---
IN TO ROUND ON PT. PT LAYING IN BED. LAB IN ROOM. PT RESPONDS WHEN ADDRESSED AND REPORTS PAIN 09/26. OFFERED PT PRN PAIN MEDICATION. PT DECLINES. PT STATES "I AM OKAY FOR NOW, THANK YOU." PT DENIES ANY OTHER NEEDS AT THIS TIME. CALL LIGHT IN REACH.
[2022-10-23 05:29] VITALS: BP 130/70
[2022-10-23 10:02] VITALS: BP 150/80
--- NOTE | 2022-10-23 11:49 | NUR ---
PT AWAKE AND LAYING IN BED FOR ASSESSMENT, HOB ELEVATED. STATES HE ISN'T FEELING WELL TODAY. REPORTS HIS LAST BM WAS TWO DAYS AGO. HE WOULD LIKE TO GET UP AND START WALKING AROUND A BIT TODAY WITH SOME ASSISTANCE AND WAS ADVISED THAT WE WOULD HELP HIM WITH THAT. BLE EDEMATOUS, PT ENCOURAGED TO KEEP THEM ELEVATED WHILE IN BED OR SEATED IN THE CHAIR TO HELP REDUCE SOME SWELLING, HE VERBALIZED UNDERSTANDING, AND A PILLOW WAS PLACED UNDERNEATH HIS FEET, AND A ROLLED UP BLANKET UNDER HIS KNEES. PT WAS GIVEN A CHOCOLATE PROTEIN SHAKE IN LIEU OF CHOCOLATE MILK AFTER HE DID NOT EAT HIS BREAKFAST BUT REQUESTED CHOCOLATE MILK. PT REQUESTED HIS SISTER BE CALLED AT SOME POINT TO LET HER KNOW WHAT IS GOING ON WITH HIM IF POSSIBLE, WHEN THE DOCTOR ROUNDS.CALL LIGHT IS IN REACH, DENIES FURTHER NEEDS AT THIS TIME.
--- NOTE | 2022-10-23 12:06 | NUR ---
PT REQUESTED PAIN MEDS FOR 8 OUT OF 10 NECK PAIN. GAVE MOTRIN (CREATININE 0.98) AFTER HE ATE. APPLIED HOT PACK TO BACK OF NECK. WILL REASSESS. CALL LIGHT IN REACH. PT STATES HE THINKS THE SENNA IS GOING TO START WORKING SOON HE CAN FEEL HIS BOWELS WANTING TO START MOVING.
--- NOTE | 2022-10-23 13:24 | NUR ---
RESPONDED TO CALL LIGHT, PT NEEDS TO USE TOILET. PT ABLE TO EXIT BED WITHOUT ASSISTANCE, STEADY ON FEET. LINEN CHANGE DONE AT THIS TIME. PT VOIDED ONLY, NO HAT USED, OR URINAL. PT UP TO CHAIR, FEET ELEVATED AND PROPPED UP ON PILLOW, PILLOW PLACED UNDERNEATH KNEES. PT PLANS TO AMBULATE HALLWAY AFTER CALCIUM IS FINISHED RUNNING THROUGH IV. HANDHELD CALL LIGHT TROUBLESHOOTING DONE, NOT COMPLETELY PLUGGED INTO WALL, CALL LIGHT TESTED, WORKING PROPERLY, WITHIN REACH OF PT. DENIES FURTHER NEEDS AT THIS TIME AFTER HOT PACK AND GINGERALE GIVEN (25MG SODIUM).
[2022-10-23 14:54] VITALS: BP 155/80
[2022-10-23 15:00] VITALS: BP 158/78
--- NOTE | 2022-10-23 15:17 | NUR ---
PT UP IN CHAIR, NO NEEDS AT THIS TIME. WATCHING TV. DENIES PAIN. CALL LIGHT IN REACH. TALKING ABOUT FOODS THAT HE LOVES TO EAT (ALL HIGH IN SODIUM) AND THAT HE USED TO DRINK A LOT OF V8.
--- NOTE | 2022-10-23 18:46 | NUR ---
PT SPENT MOST OF THIS SHIFT SITTING UP IN HIS CHAIR OR IN HIS BED WITH HOB ELEVATED, WATCHING TELEVISION. HE DID NOT EAT MUCH OF HIS BREAKFAST AND DID NOT EAT ANY OF HIS LUNCH TRAY. BY DINNER TIME, HE WAS COMMENTING HOW HUNGRY HE WAS AND THEN COMPLAINED THAT HE ONLY RECEIVED COTTAGE CHEESE, FRUIT AND A COOKIE FOR DINNER, THEN REALIZED HE WAS LIMITED ON THE TOTAL AMOUNT OF SODIUM THROUGHOUT THE MEALS FOR THE ENTIRE DAY. HE WAS PLEASANT AND COMPLIANT WITH GOALS AND QUESTIONS WERE ANSWERED. HE AMBULATED THE HALLWAY FOR 10 MINUTES AND TOLERATED THAT WELL. HE WAS UP TO VOID X2 TODAY BUT NO BM BUT HAS ACTIVE BOWEL TONES X4 AND PASSED GAS HE AMBULATED. HE WAS GIVEN SENNA THIS MORNING BUT MIRALAX WAS HELD D/T HIS IV MAGNESIUM DOSES OUT OF AN ABUNDANCE OF PRECAUTION (THESE WERE NIOS). PT'S NECK PAIN IS CHRONIC AND HE STATES THAT, AT HOME, HE "JUST DEALS WITH IT". HE VERBALIZED THE UNDERSTANDING THAT NARCOTICS CAN INCREASE CONSTIPATION AND USED HOT PACKS AND STRETCHING FOR MUSCLE PAIN RELIEF THROUGHOUT THE DAY. PT IS ABLE TO AMBULATE WITH STANDBY ASSIST ONLY WITHOUT DIFFICULTY OR COMPLAINT. HE HAS BEEN ELEVATING HIS FEET WHILE SEATED OR LAYING ALL SHIFT AND THE SWELLING HAS DECREASED SLIGHTLY SINCE DOING SO.
--- NOTE | 2022-10-23 19:10 | NUR ---
REPORT FROM JOSE F/MEIR. PT UP TO BATHROOM.
[2022-10-23 20:16] VITALS: BP 168/71
--- NOTE | 2022-10-23 20:35 | NUR ---
ASSESSMENT COMPLETED. PT INDEPENDENTLY TO BATHROOM, HAD SM FORMED STOOL AT SHIFT CHANGE. UNMEASURED VOID. A/O, DRIVES, LIVES AT [facility]. STATES HE WILL HAVE A NEW PCP, COMPLAINS ABOUT HIS "STIFF" NECK, NOTED PAIN WHEN HE WOULD TURN HEAD TO SIDE. NO NUMBNESS TINGLING IN HANDS OR FINGERS. WOULD LIKE TO HAVE MELATONIN NEAR 2200. PRN MOTRIN ADMINISTERED FOR 6/10 NECK PAIN.
--- NOTE | 2022-10-23 21:30 | NUR ---
ASSESSMENT COMPLETE. HAS BEEN UP TO BATHROOM INDEPENDENTLY. ON 3.5 L O2, SATS IN HIGH 90'S. NONPRODUCTIVE HARSH COUGH, COMPLAINS OF TIGHTNESS, CONSTRICTION LIKE. ENCOURAGED PT TO NOT TALK TO FAMILY AND FRIENDS ON PHONE, TO RELAX AIRWAY. PLACED ON CPOX, PER DR LLOYD H/P PLAN, WILL PUT SCD'S ON ONCE PT USES BATHROOM AGAIN. WILL CALL RT FOR PRN NEB LUNGS WHEEZY, WITH RHONCI.
--- NOTE | 2022-10-23 22:35 | NUR ---
PT RECEIVED PRN MELATONIN PER KETTY COX.
[2022-10-24 00:37] VITALS: BP 154/59
--- NOTE | 2022-10-24 00:48 | NUR ---
TEL #7 READ HIGH 135 NEAR 0028, PT IN BED, EYES CLOSED. AT 0035 HIGH 137. INTO ROOM, PT STATED HE HAD GOTTEN UP TO SHUT THE DOOR PRIOR TO TRACTOR OPERATOR HELPER, AND THIS RN INTO ROOM TO DO SET OF VITALS. CALLED CCU RN, WHO STATED THAT MOST WAS ARTIFACT WITH APPROX 5 SEC OF TRUE READING, WITH BOTH TIMES. DID NOT SUSTAIN. WILL CONTINUE TO MONITOR.
--- NOTE | 2022-10-24 02:40 | NUR ---
ROUNDED ON PT. PT LAYING ON HIS RIGHT SIDE, RESP EVEN AND UNLABORED. EYES CLOSED.
--- NOTE | 2022-10-24 04:38 | NUR ---
PT ALERT WHEN THIS RN ROUNDING, HE SAID HE HAD JUST BEEN TO BATHROOM AND HAD A BM AND VOIDED, HE SAID HE FORGOT AND FLUSHED THE TOILET. HE REPORTS ALL PAIN AND DISCOMFORT, FROM BACK AND NECK HAVE IMPROVED, HE REPORTS HE IS HAVING GAS PAIN, BT ACTIVE.
[2022-10-24 05:17] VITALS: BP 156/89
--- NOTE | 2022-10-24 07:58 | NUR ---
PT RESTING EYES CLOSED AT TIME OF SHIFT REPORT. UP TO TOILET AT THIS TIME. CALL LIGHT FRESH H20 AND NEEDED ITEMS AT BEDSIDE, PT AGREES TO CALL FOR ANY NEEDS
--- NOTE | 2022-10-24 09:57 | NUR ---
PT UP IN THE CHAIR HAS HAD LOOSE STOOL THIS SHIFT SENNA AND KEILY HELD. STATES HE HAS POPPING AND DISCOMFORT IN HIS NECK DENIES WANT OF INTERVENTION. PT REPORTS WANTING TO GO HOME TODAY HOSPITALIST WILL BE IN LATER. MG RIDER COMPLETE
--- NOTE | 2022-10-24 10:03 | NUR ---
UPDATED [place] [facility] THAT PATIENT WILL BE GOING [place] [facility]. TODAY.MESSAGE LEFT FOR [facility] ([facility]) TO SCHEDULE PATIENT WITH A PCP IN [place].
[2022-10-24] MEDS ORDERED: CALCIUM CARBON200 MG PO (10:55)
[2022-10-24] MEDS ORDERED: MAGNESIUM OXID400 M1 PO (10:58)
--- NOTE | 2022-10-24 11:04 | NUR ---
DR LLOYD IN TO SEE PT EARLIER. PT AMBULATING THE [place] INDEPENDANTLY STATES HE GETS TO GO HOME. PT APPEARS STEADY ON HIS FEET DENIES REQUESTS. NO ORDERS FROM MD YET
== END 2022-10-24 12:05 | disposition home or self-care (01) | DRG 641 ==
LOC: ED 14:40 → CCU 14:42 → MS 10-21 16:00
PROVIDERS: ADMIT Family Medicine; ATTEND Family Medicine
DX: E83.42 Hypomagnesemia (principal); E87.6 Hypokalemia; Z20.822 Contact with and (suspected) exposure to COVID-19; E83.51 Hypocalcemia; M54.2 Cervicalgia; M62.838 Other muscle spasm; R19.7 Diarrhea, unspecified; G47.00 Insomnia, unspecified; R60.0 Localized edema; I12.9 Hypertensive chronic kidney disease with stage 1 through stage 4 chronic kidney disease, or unspecified chronic kidney disease; N18.9 Chronic kidney disease, unspecified; D72.829 Elevated white blood cell count, unspecified; Z98.890 Other specified postprocedural states; Z88.5 Allergy status to narcotic agent; Z88.8 Allergy status to other drugs, medicaments and biological substances; Z79.899 Other long term (current) drug therapy
CPT/HCPCS: 36415; 72040; 80048; 80053; 80076; 81003; 82310; 82652; 83735; 83970; 84100; 85025; 93005; 93010; 96374; 96375; 99284-25; A9270; J0612; J1100; J1650; J1885; J2060; J2270; J3475; J3480; J3490; J7060; U0003

== ENCOUNTER 2023-03-15 08:31 | Inpatient (IN) | payer MEDICARE ==
[~2023-03-15] VITALS: Ht 175.3 cm; Wt 77.2 kg
[2023-03-15] VITALS (10 sets, daily range): BP systolic 98–139; BP diastolic 57–83
[~2023-03-15 08:31] MED LIST changes: +CALCIUM CARBON200 MG PO; +LISINOPRIL-HCT1 EAC2 PO; +MAGNESIUM OXID400 M1 PO; +OMEPRAZOLE20 MG PO
[2023-03-15] MEDS ORDERED: TRAZODONE HCL50 MG PO (08:37)
[2023-03-15] MEDS ORDERED: TRIAMTERENE-HC1 EAC1 PO (08:37)
[2023-03-15] MEDS ORDERED: SIMVASTATIN40 MG PO (08:37)
[2023-03-15 09:01] LABS: HEMATOCRIT 32.9 % (35.0-50.0); HEMOGLOBIN 11.1 g/dL (12.0-18.0); MCH 33.3 (27-36); MCHC 33.7 g/dl (30-36); MCV 98.8 fl (81-99); PLATELET COUNT 243 K/uL (140-440); RBC 3.33 M/ul (4.3-5.7); RDW 14.1 (10.5-15.0)
[2023-03-15 09:08] LABS: ALBUMIN 2.9 g/dL (3.4-5.0); ALBUMIN/GLOBULIN RATIO 0.69 (1.1-2.4); BILIRUBIN, TOTAL 1.1 ng/dL (0.2-1.0); BUN/CREATININE RATIO 14.76 (6.0-28.6); CREATININE, SERUM 1.49 mg/dL (0.70-1.30); PROTEIN, TOTAL 7.1 g/dL (6.4-8.2)
[2023-03-15 09:11] LABS: ANION GAP 19.4 (7-21); POTASSIUM 2.4 mmol/L (3.5-5.1)
[2023-03-15 09:12] LABS: CALCIUM 5.5 mg/dL (8.5-10.1); MAGNESIUM 0.1 mg/dL (1.8-2.4)
[2023-03-15 09:23] LABS: EOSINOPHILS, MANUAL DIFF 1; LYMPHOCYTES, MANUAL DIFF 11; MONOCYTES, MANUAL DIFF 8; NEUTROPHILS, MANUAL DIFF 80
[2023-03-15 09:33] LABS: TSH, 3RD GENERATION 3.31 uIU/mL (0.358-3.740)
--- NOTE | 2023-03-15 15:11 | NUR ---
SPOKE TO PATIENT ABOUT THE DISCHARGE PLAN. PATIENT LIVES AT [facility] AND PLANS TO RETURN IF THE PATIENT IS NOT EVICTED. PATIENT STATES THAT HIS LANDLORD DOER NO LKE HOW MEESSY HIS APARMENT IS. THE PATIENT'S SISTER STATES IT'S A HOADER HOUSE. PATIENT IS RETIRED AND CAN AFFORD HOUSING AND FOOD. 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 PATIENT HAS A WALKER BUT DOES NOT USE IT. PATIENT HAS A SISTER AND NEPHEW THAT WILL HELP NEEDED. PATIENT'S FAMILY IS WORRIED THAT HIS HOUSE IS SO DIRTY. PATIENT STATES IF HE GETS KICK OUT OF HIS HOUSE HE MIGHT END UP HOMELESS. PATIENT'S SISTER WILL TRY HELP. PATIENT FEELS LIKE HIS APARTMENT IS NOT THAT BAD.
--- NOTE | 2023-03-15 15:23 | NUR ---
PATIENT CONTINUES TO REST IN BED, WATCHING TV. PT HAS STILL NOT HAD ANY URINE OUTPUT. DR. MCGEE NOTIFIED AND NO NEW ORDERS REC'D. IV CALCIUM AND IV MAG STILL INFUSING. PT WILL HAVE LABS DRAWN AT 1600. HR IN THE 80s. ASSOCIATE DOCTOR IN TO SEE PATIENT. CONTINUE TO MONITOR.
--- NOTE | 2023-03-15 16:13 | NUR ---
LAB IN TO DRAW 1600 LABS AND RESULTS PENDING. CONTINUE TO MONITOR.
[2023-03-15 16:20] LABS: ALBUMIN 2.5 g/dL (3.4-5.0); ALBUMIN/GLOBULIN RATIO 0.63 (1.1-2.4); ANION GAP 16.6 (7-21); BILIRUBIN, TOTAL 1.1 ng/dL (0.2-1.0); BUN/CREATININE RATIO 13.1 (6.0-28.6); CREATININE, SERUM 1.45 mg/dL (0.70-1.30); MAGNESIUM 2.5 mg/dL (1.8-2.4); PHOSPHORUS, INORGANIC 2.1 mg/dL (2.5-4.9); POTASSIUM 2.6 mmol/L (3.5-5.1); PROTEIN, TOTAL 6.5 g/dL (6.4-8.2)
--- NOTE | 2023-03-15 16:34 | NUR ---
DR. MCGEE CALLED BY THIS RN TO NOTIFY OF LAB VALUES FROM THE 1600 DRAW. ORDERS TO BE REC'D. IV MAG WAS INFUSING BUT WAS D/C WHEN SEEING THE LAB VALUE RESULT OF 2.5. NOTIFIED MD THAT PATIENT IS STILL YET TO VOID AND INSTRUCTED TO BLADDER SCAN PATIENT. WILL CONTINUE TO MONITOR.
--- NOTE | 2023-03-15 19:20 | NUR ---
REPORT RECEIVED FROM KETTY RICE. PT RESTING IN BED WATCHING TELEVISION, DENIES NEEDS AT THIS TIME. NAD NOTED. VSS PER MONITOR.
--- NOTE | 2023-03-15 20:37 | NUR ---
SHIFT ASSESSMENT COMPLETE. SEE CHART. PT REQUESTING SLEEP AID, DR MCGEE NOTIFIED, ORDERS RECEIVED. PT DENIES ADDITIONAL NEEDS AT THIS TIME. PT VERBALIZES UNDERSTANDING TO USE CALL LIGHT WITH NEEDS. BED IN LOW, LOCKED POSITION WITH BED ALARM ON FOR PT SAFETY. NAD NOTED. VSS PER MONITOR.
[2023-03-16] VITALS (12 sets, daily range): BP systolic 95–122; BP diastolic 64–94
--- NOTE | 2023-03-16 00:21 | NUR ---
PT ASSESSMENT COMPLETE. PT REQUESTING LEADS AND MONITORING HARDWARE BE REMVED. PT EDUCATED TO NEED FOR CONTINUOUS MONITORING. PT AGREED TO LEAVE LEADS/CUFFS/SENSORS ON. NAD NOTED. VSS PER MONITOR AND DIRECT OBSERVATION.
--- NOTE | 2023-03-16 02:16 | NUR ---
PT RESTING IN BED, EASILY AWAKENED. DENIES NEEDS. VSS PER MONITOR. NAD NOTED.
--- NOTE | 2023-03-16 04:29 | NUR ---
PT ASSESSMENT COMPLETE. SEE MEDITECH. PT WATCHING TELEVISION. DENIES NEEDS. PT PLEASANT AND COMMUNICATIVE. PT VERBALIZES DESIRE TO BE INDEPENDENT POSSIBLE DURING STAY. PT VSS PER MONITOR AND OBSERVATION. NAD NOTED. PT CALL LIGHT IN REACH WITH BED IN LOW, LOCKED POSITION.
[2023-03-16 05:28] LABS: MCH 33.3 (27-36); MCHC 33.4 g/dl (30-36); MCV 99.7 fl (81-99); PLATELET COUNT 199 K/uL (140-440); RBC 3.31 M/ul (4.3-5.7); RDW 14.1 (10.5-15.0)
--- NOTE | 2023-03-16 05:36 | NUR ---
PT REQUESTED BLANKET AND MENU TO ORDER BREAKFAST WHEN AVAILABLE. BOTH PROVIDED. PT DENIES ADDITIONAL NEEDS AT THIS TIME.
[2023-03-16 05:47] LABS: ALBUMIN 2.5 g/dL (3.4-5.0); ALBUMIN/GLOBULIN RATIO 0.58 (1.1-2.4); ANION GAP 16.4 (7-21); BILIRUBIN, TOTAL 1.4 ng/dL (0.2-1.0); BUN/CREATININE RATIO 15.31 (6.0-28.6); CALCIUM 7.1 mg/dL (8.5-10.1); CREATININE, SERUM 1.11 mg/dL (0.70-1.30); MAGNESIUM 1.7 mg/dL (1.8-2.4); PHOSPHORUS, INORGANIC 1.3 mg/dL (2.5-4.9); POTASSIUM 4.4 mmol/L (3.5-5.1); PROTEIN, TOTAL 6.8 g/dL (6.4-8.2)
[2023-03-16 06:33] LABS: BANDS, MANUAL DIFF 4; LYMPHOCYTES, MANUAL DIFF 11; MONOCYTES, MANUAL DIFF 1; NEUTROPHILS, MANUAL DIFF 80; OTHER, MANUAL DIFF 4
--- NOTE | 2023-03-16 07:18 | NUR ---
REPORT GIVEN AND CARE TRANSFERRED TO KETTY SULLIVAN. PT VSS PER CONTINUOUS MONITORING.
--- NOTE | 2023-03-16 07:25 | NUR ---
report from lucio Jewell resting in room hr 92, sats 97%, call light in reach.
--- NOTE | 2023-03-16 07:44 | NUR ---
reviewed emar with xiang in pharmacy - [facility] not loaded this am. will bring to this RN.
--- NOTE | 2023-03-16 07:45 | NUR ---
pt resting in bed. vitals complete. pt declines restroom needs. pt up to chair for meal. pt provided warm wash rag and breakfast tray. linens changed. No needs. call light within reach
--- NOTE | 2023-03-16 07:57 | NUR ---
dr farley in room with pt who is up in chair eating meal. discussed plan of care and pt would like help to get a pcp in [place]. discussed follow up and follow through of care and rx. pt has call light and denies needs.
--- NOTE | 2023-03-16 09:21 | NUR ---
MED REC COMPLETE
--- NOTE | 2023-03-16 09:43 | NUR ---
I [employer]AURANT CREW IN ROOM DUE TO TELE LEADS BEING OFF. UPON ENTERING ROOM PT WAS UP IN ROOM TANGLED IN CORDS. PT HE;PED GET UNTANGGLED AND BACK TO BED. PT REMINDED HE NEEDS TO CALL WHEN HE WOULD LIKE TO GET UP SO HE DOES NOT FALL. PT NOW IN BED. PT STATED "WHEN DO I GET MY OWN ROOM" I LET PT KNOW HE HAS HIS OWN ROOM AND PT STATED "WELL ONE WHERE I DON'T HAVE TO HAVE ALL THESE ON ME" HE POINTS TO TELE LEADS, BP CUFF, AND IV". PT REMINDED THAT WHILE IN HOSPITAL HE WILL NEED TO HAVE THESE ITEMS BECAUSE IT HELPS US MONITOR HIM. PT HAS NO FURTHER NEEDS. BED ALARM SET. CALL LIGHT WITHIN REACH
--- NOTE | 2023-03-16 11:00 | NUR ---
pt sitting at bedside wnl - PT mey in to eval and treat. pt denies needs.
[2023-03-16 11:27] LABS: PARATHYROID HORMONE,INTACT 17 pg/mL (15-65)
[2023-03-16 11:53] LABS: VITAMIN D,1,25-DIHYDROXY 21.2 pg/mL (19.9-79.3)
--- NOTE | 2023-03-16 13:00 | NUR ---
pt report given to arleen elkins at bedside, pt sitting up and room air, moved to room 115 med surg in . all belongings including wallet and keys sent with pt.
--- NOTE | 2023-03-16 13:12 | NUR ---
Patient to the medical floor at this time. Patient is alert and oriented x4, no ditress. Patient denies pain at this time. Vital signs are stable, afebrile. Patient oriented to room and call light. Personal supplies and call light within reach.
--- NOTE | 2023-03-16 16:19 | NUR ---
PATIENT IN BED WATCHING TV, NO DISTRESS. PATIENT DENIES NEEDS. PERSONAL SUPPLIES AND CALL LIGHT WITHIN REACH.
--- NOTE | 2023-03-16 19:39 | NUR ---
REPORT RECEIVED FROM DAY SHIFT NURSE. PT SITTING ON SIDE OF BED AWAKE AND ALERT. CALL LIGHT WITHIN REACH. SAFETY PRECAUTIONS IN PLACE. NO NEEDS EXPRESSED AT THIS TIME.
--- NOTE | 2023-03-17 00:03 | NUR ---
PT LYING DOWN IN BED WATCHING TV. CALL LIGHT WITHIN REACH. SAFETY PRECAUTIONS IN PLACE. NO NEEDS AT THIS TIME. WILL CONTINUE TO MONITOR.
--- NOTE | 2023-03-17 04:06 | NUR ---
PT SITTING UP IN BED WATCHING TV. CALL LIGHT WITHIN REACH. SAFETY PRECAUTIONS IN PLACE. NO NEEDS EXPRESSED AT THIS TIME.
[2023-03-17 05:16] VITALS: BP 114/64
[2023-03-17 05:27] LABS: BASOPHILS 0.6 % (0-2); EOSINOPHILS 3.6 % (0-6); HEMATOCRIT 27.7 % (35.0-50.0); HEMOGLOBIN 9.4 g/dL (12.0-18.0); LYMPHOCYTES 17.5 % (24-44); MCH 33.5 (27-36); MCHC 33.9 g/dl (30-36); MCV 98.8 fl (81-99); NEUTROPHILS 62.3 % (39-80); PLATELET COUNT 221 K/uL (140-440); RBC 2.81 M/ul (4.3-5.7); RDW 14.1 (10.5-15.0)
[2023-03-17 05:46] LABS: ALBUMIN 2.2 g/dL (3.4-5.0); ALBUMIN/GLOBULIN RATIO 0.58 (1.1-2.4); ANION GAP 11.7 (7-21); BILIRUBIN, TOTAL 0.6 ng/dL (0.2-1.0); BUN/CREATININE RATIO 18.44 (6.0-28.6); CREATININE, SERUM 1.03 mg/dL (0.70-1.30); MAGNESIUM 1.3 mg/dL (1.8-2.4); PHOSPHORUS, INORGANIC 1.5 mg/dL (2.5-4.9); POTASSIUM 4.7 mmol/L (3.5-5.1)
--- NOTE | 2023-03-17 05:51 | EKG ---
[facility] [address] [place] [id number] Signed Normal sinus rhythm Left axis deviation Abnormal ECG When compared with ECG of 20-OCT-2022 18:55, Nonspecific T wave abnormality, improved in Lateral leads Confirmed by FRANKY MCGEE MD ([id number]) on 03/17/2023 5:50:52 AM Electronically Signed By: FRANKY MCGEE 03/17/23 0551 PATIENT NAME: LEOBARDOAMBIKA Electrocardiogram DATE OF : 55 PHYSICIAN: FRANKY MCGEE REPORT #: [id number] REPORT IS CONFIDENTIAL AND NOT TO BE RELEASED WITHOUT AUTHORIZATION
--- NOTE | 2023-03-17 07:10 | NUR ---
REPORT GIVEN TO DAY SHIFT NURSE. PT LYING IN BED WITH EYES CLOSED. BREATHING EVEN AND UNLABORED. CALL LIGHT WITHIN REACH. NO NEEDS AT THIS TIME. SAFETY PRECAUTIONS IN PLACE.
--- NOTE | 2023-03-17 07:17 | NUR ---
Patient in bed resting, eyes closed, respirations even and non labored. Call light within reach of pt. No current needs, personal supplies and call light within reach.
[2023-03-17 09:39] VITALS: BP 93/57
[2023-03-17 10:38] VITALS: BP 101/73
--- NOTE | 2023-03-17 11:45 | NUR ---
Spoke with Dominick. He denies needs. states he is not feeling well today. He does plan on dc to home when he is medically cleared. Pt denies needs.
[2023-03-17 13:16] LABS: IRON,SERUM OR PLASMA 37 ug/dL (45-182)
[2023-03-17 13:35] VITALS: BP 113/70
[2023-03-17 17:07] LABS: FERRITIN 1153 ng/mL (31-409)
--- NOTE | 2023-03-17 17:46 | NUR ---
Spoke with pt and IM letter completed. Pt refused to sign as he has one on his table from admission.
[2023-03-17 17:47] VITALS: BP 126/84
--- NOTE | 2023-03-17 19:16 | NUR ---
REPORT RECEIVED FROM DAY SHIFT NURSE. PT SITTING UP IN BED WATCHING TV. CALL LIGHT WITHIN REACH. NO NEEDS EXPRESSED AT THIS TIME. SAFETY PRECAUTIONS IN PLACE.
[2023-03-17 21:14] VITALS: BP 121/71
--- NOTE | 2023-03-18 01:53 | NUR ---
PT SITTING UP IN BED AWAKE AND ALERT. PT GIVEN SNACKS AND MILK PER REQUEST. NO OTHER NEEDS AT THIS TIME. CALL LIGHT WITHIN REACH. SAFETY PRECAUTIONS IN PLACE.
--- NOTE | 2023-03-18 04:46 | NUR ---
PT LYING IN BED WITH EYES CLOSED. BREATHING EVEN AND UNLABORED. NO SIGNS OF ACUTE DISTRESS. CALL LIGHT WITHIN REACH. SAFETY PRECAUTIONS IN PLACE. NO NEEDS AT THIS TIME.
[2023-03-18 05:34] VITALS: BP 120/73
[2023-03-18 05:34] LABS: BASOPHILS 0.5 % (0-2); EOSINOPHILS 4.2 % (0-6); HEMATOCRIT 27.1 % (35.0-50.0); HEMOGLOBIN 9.1 g/dL (12.0-18.0); LYMPHOCYTES 15.6 % (24-44); MCH 33.6 (27-36); MCHC 33.6 g/dl (30-36); MCV 100.1 fl (81-99); MONOCYTES 16.7 % (0-12); PLATELET COUNT 240 K/uL (140-440); RBC 2.71 M/ul (4.3-5.7); RDW 14.2 (10.5-15.0)
[2023-03-18 05:50] LABS: ALBUMIN 2.2 g/dL (3.4-5.0); ALBUMIN/GLOBULIN RATIO 0.58 (1.1-2.4); ANION GAP 13.3 (7-21); BILIRUBIN, TOTAL 0.3 ng/dL (0.2-1.0); BUN/CREATININE RATIO 13.72 (6.0-28.6); CALCIUM 6.9 mg/dL (8.5-10.1); CREATININE, SERUM 1.02 mg/dL (0.70-1.30); MAGNESIUM 1.4 mg/dL (1.8-2.4); PHOSPHORUS, INORGANIC 1.6 mg/dL (2.5-4.9); POTASSIUM 5.3 mmol/L (3.5-5.1)
--- NOTE | 2023-03-18 07:25 | NUR ---
REPORT GIVEN TO DAY SHIFT NURSE. PT SITTING UP IN BED WATCHING TV. CALL LIGHT WITHIN REACH. NO NEEDS EXPRESSED AT THIS TIME.
--- NOTE | 2023-03-18 07:35 | NUR ---
PATIENT RESTING IN BED, EYES CLOSED, RESPIRATIONS EVEN AND NON LABORED. PATIENT HAS NO NEEDS AT THIS TIME. PERSONAL SUPPLIES AND CALL LIGHT WITHIN REACH.
[2023-03-18 09:58] VITALS: BP 126/73
[2023-03-18 12:12] LABS: ANION GAP 14.5 (7-21); BUN/CREATININE RATIO 13.46 (6.0-28.6); CALCIUM 7.3 mg/dL (8.5-10.1); CREATININE, SERUM 1.04 mg/dL (0.70-1.30); POTASSIUM 5.5 mmol/L (3.5-5.1)
[2023-03-18 14:20] VITALS: BP 117/69
--- NOTE | 2023-03-18 15:04 | NUR ---
PATIENT SITTING UP IN BED WATCHING TV, NO ACUTE DISTRESS. PATIENT DENIES PAIN AT THIS TIME. FRESH WATER AT BEDSIDE. NO CURRENT NEEDS, PERSONAL SUPPLIES AND CALL LIGHT WITHIN REACH.
--- NOTE | 2023-03-18 17:00 | NUR ---
IMODIUM 2MG PO ADMIN FOR C/O DIARRHEA. MILK PROVIDED TO PATIENT PER HIS REQUEST. PATIENT SITTING UP IN BED LISTENING TO MUSIC IN PLEASANT MOOD, NO DISTRESS.
[2023-03-18 17:32] VITALS: BP 133/86
--- NOTE | 2023-03-18 19:28 | NUR ---
REPORT RECEIVED FROM DAY SHIFT RN. PT RESTING COMFORTABLY IN BED. BREATHING EVEN AND UNLABORED. NO SIGNS OF ACUTE DISTRESS. CALL LIGHT WITHIN REACH. SAFETY PRECAUTIONS IN PLACE.
[2023-03-18 21:06] VITALS: BP 142/84
--- NOTE | 2023-03-19 01:00 | NUR ---
PT SITTING UP ON THE SIDE OF THE BED REQUESTING A SNACK. NO OTHER NEEDS AT THIS TIME. IV INFUSING. CALL LIGHT WITHIN REACH. SAFETY PRECAUTIONS IN PLACE.
--- NOTE | 2023-03-19 04:07 | NUR ---
PT LYING DOWN IN BED WATCHING TV. NO NEEDS EXPRESSED AT THIS TIME. CALL LIGHT WITHIN REACH. SAFETY PRECAUTIONS IN PLACE. WILL CONTINUE TO MONITOR.
[2023-03-19 05:28] LABS: BASOPHILS 0.8 % (0-2); EOSINOPHILS 5.4 % (0-6); HEMATOCRIT 27.6 % (35.0-50.0); HEMOGLOBIN 9.1 g/dL (12.0-18.0); LYMPHOCYTES 21.9 % (24-44); MCH 32.9 (27-36); MCHC 32.8 g/dl (30-36); MCV 100.5 fl (81-99); MONOCYTES 16.4 % (0-12); NEUTROPHILS 55.5 % (39-80); PLATELET COUNT 261 K/uL (140-440); RBC 2.75 M/ul (4.3-5.7); RDW 13.8 (10.5-15.0)
[2023-03-19 06:01] LABS: ALBUMIN 2.2 g/dL (3.4-5.0); ALBUMIN/GLOBULIN RATIO 0.61 (1.1-2.4); ANION GAP 15.9 (7-21); BILIRUBIN, TOTAL 0.3 ng/dL (0.2-1.0); BUN/CREATININE RATIO 14.85 (6.0-28.6); CALCIUM 6.9 mg/dL (8.5-10.1); CREATININE, SERUM 1.01 mg/dL (0.70-1.30); PHOSPHORUS, INORGANIC 5.1 mg/dL (2.5-4.9); POTASSIUM 4.9 mmol/L (3.5-5.1); PROTEIN, TOTAL 5.8 g/dL (6.4-8.2)
[2023-03-19 06:05] VITALS: BP 120/64
[2023-03-19 06:06] LABS: MAGNESIUM 0.9 mg/dL (1.8-2.4)
[2023-03-19 06:35] LABS: PHOSPHORUS, INORGANIC 5.1 mg/dL (2.5-4.9)
[2023-03-19 06:38] LABS: MAGNESIUM 0.9 mg/dL (1.8-2.4)
--- NOTE | 2023-03-19 07:31 | NUR ---
REPORT GIVEN TO DAY SHIFT RN. PT SITTING UP IN BED WATCHING TV. CALL LIGHT WITHIN REACH. NO NEEDS EXPRESSED AT THIS TIME. SAFETY PRECAUTIONS IN PLACE.
--- NOTE | 2023-03-19 07:40 | NUR ---
PT SITTING UP IN BED WATCHING TV AT TIME OF SHIFT REPORT. ALERT AND INTEACTIVE PT DENIES NEEDS AT THIS TIME. FRESH H20 TO BEDSIDE CALL LIGHT IN REACH
--- NOTE | 2023-03-19 08:28 | NUR ---
PT UP INDEPENDANTLY TO THE TOILET THEN RETURNS TO SITTING IN BED. EDUCATION PROVIDED R/T FALL PRECAUTIONS, LE EDEMA, NUTRITIONAL NEEDS, NEED TO BE UP OUT OF BED AND AMBULATION. VERBALIZES UNDERSTANDING.
[2023-03-19 10:17] VITALS: BP 125/66
--- NOTE | 2023-03-19 12:02 | NUR ---
PT CONTINUES IN BED AT THIS TIME. SITS ON EDGE THEN LAYS DOWN AWHILE CHANGEING POSITIONS. REMINDED PT OF NEED TO AMBULATE, HE AGREES TO DO SO AFTER NOON MEAL. DENIES DISCOMFORTS OR NEEDS AT THIS TIME.
--- NOTE | 2023-03-19 13:30 | NUR ---
DR LLOYD IN TO SEE PT
[2023-03-19 15:07] VITALS: BP 135/75
--- NOTE | 2023-03-19 15:52 | NUR ---
PT UP IN THE ROOM "STRETCHING HIS LEGS" DENIES NEEDS
[2023-03-19 17:36] VITALS: BP 132/75
--- NOTE | 2023-03-19 17:58 | NUR ---
PT CONTINUES TO BE UPBEAT AND COOPERATIVE THIS SHIFT. UP IN THE ROOM INDEPENDANTLY. EATS VERY LITTLE DINNER, ALTERNATIVES OFFERED AND REFUSED. PT DENIES PAIN, DISCOMFORTS, OR NEEDS OF.
--- NOTE | 2023-03-19 19:57 | NUR ---
REPORT RECEIVED FROM KETTY SMITH. pt RESTING IN BED AWAKE, WATCHING TV. DENIES NEEDS. CALL LIGHT WITHIN REACH.
[2023-03-19 21:21] VITALS: BP 132/75
--- NOTE | 2023-03-19 21:44 | NUR ---
pt AWAKE, SBA TO RESTROOM FOR VOID AND BACK TO BED. pt COUGHING, STATES "THIS DIDN'T START UNTIL I GOT HERE". ASSESSMENT COMPLETE. IV SITE NOT PATENT, pt AGREEABLE FOR IV START WITH LAB DRAW IN AM. CALL LIGHT IN REACH. LIGHTS OFF IN ROOM.
--- NOTE | 2023-03-20 00:36 | NUR ---
CHECKED ON pt. RESTING IN BED WITH HOB ELEVATED. BREATHING EQUAL AND UNLABORED, RR 14. NO DISTRESS NOTED.
--- NOTE | 2023-03-20 01:54 | NUR ---
pt UP TO RESTROOM INDEPENDENTLY AT THIS TIME. DENIES ANY NEEDS. CALL LIGHT IN REACH.
--- NOTE | 2023-03-20 05:00 | NUR ---
KETTY RODRIGUEZ IN ROOM FOR VS, IV START. LABS DRAWN FROM IV. pt RESTING IN BED AWAKE. NO REQUESTS AT THIS TIME.
[2023-03-20 05:40] VITALS: BP 135/83
[2023-03-20 05:57] LABS: BASOPHILS 0.6 % (0-2); EOSINOPHILS 4.8 % (0-6); HEMATOCRIT 29.6 % (35.0-50.0); HEMOGLOBIN 9.8 g/dL (12.0-18.0); LYMPHOCYTES 17.1 % (24-44); MCH 33.4 (27-36); MCHC 33.1 g/dl (30-36); MCV 100.8 fl (81-99); MONOCYTES 15.2 % (0-12); NEUTROPHILS 62.3 % (39-80); PLATELET COUNT 313 K/uL (140-440); RBC 2.93 M/ul (4.3-5.7); RDW 14.3 (10.5-15.0)
[2023-03-20 06:13] LABS: ALBUMIN 2.5 g/dL (3.4-5.0); ALBUMIN/GLOBULIN RATIO 0.61 (1.1-2.4); ANION GAP 14.2 (7-21); BILIRUBIN, TOTAL 0.3 ng/dL (0.2-1.0); BUN/CREATININE RATIO 14.28 (6.0-28.6); CALCIUM 8.2 mg/dL (8.5-10.1); CREATININE, SERUM 0.98 mg/dL (0.70-1.30); MAGNESIUM 1.7 mg/dL (1.8-2.4); PHOSPHORUS, INORGANIC 3.9 mg/dL (2.5-4.9); POTASSIUM 5.2 mmol/L (3.5-5.1); PROTEIN, TOTAL 6.6 g/dL (6.4-8.2)
--- NOTE | 2023-03-20 07:26 | NUR ---
PT RESTING ON HIS SIDE EYES CLOSED AT TIME OF SHIFT REPORT. BREATHING EVEN AND UNLABORED, LEFT UNDISTURBED. CALL LIGHT AND NEEDED ITEMS IN REACH
--- NOTE | 2023-03-20 08:49 | NUR ---
PT SLEEPS IN A BIT REPORTS HAVING SLEPT WELL. AWAKE NOW HAS EATEN 75% OF MORNING MEAL. SITTING UP ON EDGE OF BED WATCHING TV STATES HE HOPES TO GO HOME TODAY. DENIES DISCOMFORTS OR NEEDS OF
--- NOTE | 2023-03-20 09:11 | NUR ---
PT LAYING IN BED WATCHING TV. DENIES NEEDS AT THIS TIME. SHIFT ASSESSMENT COMPLETE. NO CHANGES. CALL LIGHT WITHIN REACH
--- NOTE | 2023-03-20 10:16 | NUR ---
PT SITTING UP IN THE BED WATCHING TV DENIES DISOMFORTS OR NEEDS OF.
[2023-03-20 10:40] VITALS: BP 145/78
--- NOTE | 2023-03-20 10:47 | NUR ---
I ASKED PATIENT IF HE WOULD LIKE TO TAKE A SHOWER OR BRUSH HIS TEETH AND WASH HIS FACE AND HE SAID NO HE WANTED TO WAIT UNTIL HE GETS HOME.
--- NOTE | 2023-03-20 11:54 | NUR ---
PT UP IN THE ROOM INDEPENDANTLY ASKS WHEN THE DOC WILL BE IN STATING HE WANTS TO GO HOME. EXPLAINED THERE IS NO WAY OF KNOWING FOR CERTAIN BUT HE WILL BE IN TODAY. PT DENIES ANY DISCOMFORTS OR NEEDS AGREES HE IS READY FOR LUNCH
--- NOTE | 2023-03-20 13:00 | NUR ---
Spoke with Dominick. He denies needs. Wants to know how he will get around the block to his home at [facility]. He then tells me he doesn't have any clothing as he came by EMS. Let him know we can send him in scrubs. He denies needs for dc. States if he had his car he would drive. I asked if he wants OP PT/OT as this is what therapy is recommending. He states he will think about it. I will let Dr. Short know.
--- NOTE | 2023-03-20 13:00 | NUR ---
PT OUT IN HALLWAY AMBULATING.
--- NOTE | 2023-03-20 14:04 | NUR ---
Patient plans to discharge today. Feels that he is ready to go home. The IMM letter is given and explaned, Chato agrees to his discharge plan. He wants to waive the 4 hour IMM rule, as he is "ready to go now." Pt denies questions, concerns, or other patient care needs.
[2023-03-20 14:20] VITALS: BP 135/70
[2023-03-20] MEDS ORDERED: MAG6464 MG PO (14:31)
[2023-03-20] MEDS ORDERED: VITAMIN B-121000 MCG PO (14:32)
--- NOTE | 2023-03-20 14:59 | NUR ---
IV REMOVED, TIP INTACT, GAUZE AND COBAN DRESSING APPLIED TO SITE. PT TOLERATED WELL.
--- NOTE | 2023-03-29 10:43 | NUR ---
NIRAJ 03/28/23 at 1456. Callback completed. Discussed with patient his recent inpatient stay in facility. States he is feeling well and has felt well since his DC home. Only has 3 days of prescription left and has already reached out to pharmacy who is reaching out to his PCP to refill. No issues getting to his follow-up appointment. Discussed signs and symptoms of electrolyte imbalances and complications related to those imbalances. Verbalizes understanding and voices back when he needs to see his PCP or returtn to the ER. Denies other needs or questions at this time.
== END 2023-03-20 15:25 | disposition home or self-care (01) | DRG 641 ==
LOC: ED 08:31 → CCU 11:12 → MS 03-16 13:00
PROVIDERS: Emergency Medicine; Family Medicine; ADMIT Family Medicine; ATTEND Family Medicine
DX: E83.42 Hypomagnesemia (principal); E46 Unspecified protein-calorie malnutrition; E83.51 Hypocalcemia; E87.6 Hypokalemia; E83.39 Other disorders of phosphorus metabolism; M54.2 Cervicalgia; R60.0 Localized edema; R11.0 Nausea; R19.7 Diarrhea, unspecified; I12.9 Hypertensive chronic kidney disease with stage 1 through stage 4 chronic kidney disease, or unspecified chronic kidney disease; N18.9 Chronic kidney disease, unspecified; D63.1 Anemia in chronic kidney disease; E31.9 Polyglandular dysfunction, unspecified; M54.9 Dorsalgia, unspecified; E78.5 Hyperlipidemia, unspecified; M25.512 Pain in left shoulder; Z20.822 Contact with and (suspected) exposure to COVID-19; Z98.890 Other specified postprocedural states; Z88.8 Allergy status to other drugs, medicaments and biological substances; Z88.5 Allergy status to narcotic agent; Z79.899 Other long term (current) drug therapy; Z68.24 Body mass index [BMI] 24.0-24.9, adult
CPT/HCPCS: 36415; 71045; 80048; 80053; 82607; 82652; 82728; 83735; 83970; 84100; 84439; 84443; 85025; 93005; 93010; 96365; 96366; 96367; 96368; 96375; 97161; 99285-25; A9270; C9803; J1650; J1885; J3420; J3475; J3480; J3490; J7060; U0002

== ENCOUNTER 2024-03-27 19:00 | Emergency (ER) | payer MEDICARE ==
[~2024-03-27] VITALS: Ht 175.3 cm; Wt 80.0 kg
[~2024-03-27 19:00] MED LIST changes: +MAG6464 MG PO; +SIMVASTATIN40 MG PO; +TRAZODONE HCL50 MG PO; +TRIAMTERENE-HC1 EAC1 PO; +VITAMIN B-121000 MCG PO
[2024-03-27 19:30] LABS: BASOPHILS 0.9 % (0-2); EOSINOPHILS 1.9 % (0-6); HEMATOCRIT 34.6 % (35.0-50.0); LYMPHOCYTES 23.2 % (24-44); MCH 35.3 (27-36); MCHC 34.8 g/dl (30-36); MCV 101.5 fl (81-99); MONOCYTES 11.4 % (0-12); NEUTROPHILS 62.6 % (39-80); PLATELET COUNT 268 K/uL (140-440); RBC 3.41 M/ul (4.3-5.7); RDW 14.1 (10.5-15.0)
[2024-03-27 19:37] LABS: ALBUMIN 3.2 g/dL (3.4-5.0); ALBUMIN/GLOBULIN RATIO 0.76 (1.1-2.4); ANION GAP 15.9 (7-21); BILIRUBIN, TOTAL 0.5 ng/dL (0.2-1.0); BUN/CREATININE RATIO 16.66 (6.0-28.6); CALCIUM 7.5 mg/dL (8.5-10.1); CREATININE, SERUM 1.14 mg/dL (0.70-1.30); POTASSIUM 3.9 mmol/L (3.5-5.1); PROTEIN, TOTAL 7.4 g/dL (6.4-8.2)
[2024-03-27] MEDS ORDERED: ANUSOL-HC30 GM PR (19:48)
[2024-03-27] MEDS ORDERED: MAGNESIUM SULFATE 2 GM/50 ML BAG IV ONE (20:00)
[2024-03-27 22:00] VITALS: BP 136/74
== END 2024-03-27 22:00 | disposition home or self-care (01) ==
LOC: ED 19:00
PROVIDERS: Family Medicine
DX: K64.9 Unspecified hemorrhoids (principal); I12.9 Hypertensive chronic kidney disease with stage 1 through stage 4 chronic kidney disease, or unspecified chronic kidney disease; N18.9 Chronic kidney disease, unspecified; Z88.5 Allergy status to narcotic agent; Z88.6 Allergy status to analgesic agent; Z79.899 Other long term (current) drug therapy
CPT/HCPCS: 36415; 80053; 83735; 85025; 96365; 96366; 99283-25; J3475